=== PATIENT | male | born 1950 | race Caucasian/White ===

== ENCOUNTER 2017-05-29 15:35 | Observation (INO) | payer MEDICARE, OTHER ==
[2017-05-29] VITALS (7 sets, daily range): BP systolic 125–187; BP diastolic 63–113; PULSE 50–77; RESP 16–19; TEMP 97.4–98.4; O2SAT 93–99
[~2017-05-29] VITALS: Ht 180.3 cm; Wt 105.5 kg
[~2017-05-29 15:35] MED LIST: BENI20TA26 PO
[2017-05-29] MEDS ORDERED: DILT120T PO (16:15)
[2017-05-29] MEDS ORDERED: NITROGLYCERIN 2% OINT 1 GM PACKET TOP ONE (16:30)
[2017-05-29] MEDS ORDERED: ASPIRIN 81 MG CHEW TAB PO ONE (16:30)
[2017-05-29] MEDS ORDERED: SODIUM CHLORIDE 0.9% FLUSH 10 ML FLUSH IVF PRN (16:30)
[2017-05-29 17:04] LABS: AUTOMATED NEUTROPHIL # 3.8 TH/MM3 (1.8-7.7); BASOPHIL % 0.4 % (0.0-2.0); EOSINOPHIL # 0.2 TH/MM3 (0-0.4); EOSINOPHIL % 2.2 % (0.0-4.0); HEMATOCRIT 48.8 % (39.0-51.0); HEMO FLAGS DIFF FINAL; LYMPH % 34.8 % (9.0-44.0); LYMPHOCYTE # 2.5 TH/MM3 (1.0-4.8); MEAN CELL VOLUME 91.9 FL (80.0-100.0); MEAN CORPUSCULAR HEMOGLOBIN 32.2 PG (27.0-34.0); MEAN CORPUSCULAR HGB CONC 35.1 % (32.0-36.0); MONO % 8.9 % (0.0-8.0); NEUT % 53.7 % (16.0-70.0); PLATELET COUNT 245 TH/MM3 (150-450); RED BLOOD COUNT 5.31 MIL/MM3 (4.50-5.90); RED CELL DISTRIBUTION WIDTH 13.8 % (11.6-17.2); WHITE BLOOD COUNT 7.1 TH/MM3 (4.0-11.0)
[2017-05-29 17:16] LABS: APTT (PATIENT) 30.4 SEC (24.3-30.1)
[2017-05-29 17:38] LABS: ALKALINE PHOSPHATASE 68 U/L (45-117); CREATINE KINASE 352 U/L (39-308); TOTAL BILIRUBIN ADULT 0.3 MG/DL (0.2-1.0)
--- NOTE | 2017-05-29 17:41 | RADRPT ---
EXAM DATE/TIME: 05/29/2017 17:12 [facility] COMPARISON: No previous studies available for comparison. INDICATIONS : Left upper quadrant chest pain. MEDICAL HISTORY : Hypertension. SURGICAL HISTORY : None. ENCOUNTER: Initial ACUITY: 1 day PAIN SCORE: 3/10 LOCATION: Bilateral chest FINDINGS: A single view of the chest demonstrates the lungs to be symmetrically aerated without evidence of mas s, infiltrate or effusion. The cardiomediastinal contours are unremarkable. Osseous structures are intact. CONCLUSION: 1. No acute cardiopulmonary findings. Robert Hill MD on May 29, 2017 at 17:39 Board Certified Radiologist. This report was verified electronically.
--- NOTE | 2017-05-29 17:47 | PD ---
HPI Chief Complaint: Chest Pain Time Seen by Provider: 17:11 Travel History International Travel<30 days: No Contact w/Intl Traveler<30days: No Traveled to known affect area: No History of Present Illness HPI 67-year-old male presents emergency department for evaluation of chest pain intermittent left-sided chest without radiation for the past month or so. Patient had a referral to Dr. Raza whom he went to see today. According the patient Dr. Raza wanted to do a stress test but now a the patient was still having chest pain he recommended he come to the emergency department so the patient did. He states he is having only mild irritation left side of his chest. Now no radiation. Does have a history of high blood pressure. States he had a stress test some years ago as well as a cardiac catheterization and did not require any stents. He cannot determine any alleviating or exacerbating factors. He states it feels almost sore like he's been working his muscles 2 months. He states is also been under a lot of stress. Nonsmoker , no family history of heart disease. States symptoms are intermittent, mild, in the middle of his chest, associated signs symptoms as above. PFSH Past Medical History Heart Rhythm Problems: Yes Cancer: Yes (SQUAMOUS CELL CA EAR) Cardiovascular Problems: Yes (MVP) Diabetes: No Glaucoma: No Hepatitis: No Hiatal Hernia: No Hypertension: Yes Thyroid Disease: No Tetanus Vaccination: > 5 Years Influenza Vaccination: No Past Surgical History Abdominal Surgery: Yes (REPAIR INGUINAL HERNIA) Oral Surgery: Yes (T&A CHILDHOOD) Pacemaker: No Tonsillectomy: Yes Other Surgery: Yes (EXCISION SQUAMOUS CELL CA EAR) Social History Alcohol Use: No Tobacco Use: No Allergies-Medications (Allergen,Severity, Reaction): Coded Allergies: No Known Allergies (Verified Adverse Reaction, Unknown, 05/29/17) Reported Meds & Prescriptions Reported Meds & Active Scripts Active Reported Diltiazem (Diltiazem HCl) 120 Mg Tab 120 Mg PO DAILY Review of Systems Except as stated in HPI: all other systems reviewed are Neg Physical Exam Narrative GENERAL: [Well-developed well-nourished no obvious distress SKIN: Focused skin assessment warm/dry. HEAD: Atraumatic. Normocephalic. EYES: Pupils equal and round. No scleral icterus. No injection or drainage. ENT: No nasal bleeding or discharge. Mucous membranes pink and moist. NECK: Trachea midline. No JVD. CARDIOVASCULAR: Regular rate and rhythm. No murmur appreciated. 2+ bilateral equal pulses in all 4 extremities. RESPIRATORY: No accessory muscle use. Clear to auscultation. Breath sounds equal bilaterally. GASTROINTESTINAL: Abdomen soft, non-tender, nondistended. Hepatic and splenic margins not palpable. MUSCULOSKELETAL: No obvious deformities. No clubbing. No cyanosis. No edema. NEUROLOGICAL: Awake and alert. No obvious cranial nerve deficits. Motor grossly within normal limits. Normal speech. PSYCHIATRIC: Appropriate mood and affect; insight and judgment normal. Data Data Last Documented VS Vital Signs Date Time Temp Pulse Resp B/P (MAP) Pulse Ox O2 Delivery O2 Flow Rate FiO2 05/29/17 17:58 96 Room Air 05/29/17 17:58 53 19 160/77 (104) 05/29/17 15:36 98.4 Orders Orders Electrocardiogram (05/29/17 ) Electrocardiogram (05/29/17 16:19) Ckmb (Isoenzyme) Profile (05/29/17 16:19) Complete Blood Count With Diff (05/29/17 16:19) Comprehensive Metabolic Panel (05/29/17 16:19) Magnesium (Mg) (05/29/17 16:19) Prothrombin Time / Inr (Pt) (05/29/17 16:19) Act Partial Throm Time (Ptt) (05/29/17 16:19) Troponin I (05/29/17 16:19) Chest, Single Ap (05/29/17 16:19) Ecg Monitoring (05/29/17 16:19) Bilateral Bp Monitoring (05/29/17 16:19) Iv Access Insert/Monitor (05/29/17 16:19) Oximetry (05/29/17 16:19) Oxygen Administration (05/29/17 16:19) Aspirin Chew (Aspirin Chew) (05/29/17 16:30) Nitroglycerin 2% Oint (Nitroglycerin 2% (05/29/17 16:30) Sodium Chloride 0.9% Flush (Ns Flush) (05/29/17 16:30) CKMB (05/29/17 16:33) CKMB% (05/29/17 16:33) Admit Order (Ed Use Only) (05/29/17 ) Activity Bed Rest With Brp (05/29/17 18:04) Vital Signs (Adult) Q4H (05/29/17 18:04) Cardiac Rhythm .As Directed (05/29/17 18:04) Notify Dr: Other .PRN (05/29/17 18:04) Notify DrAbdelrahman Parameters (05/29/17 18:04) Resp Oxygen Nasal Cannula (05/29/17 ) Diet Heart Healthy (05/29/17 Dinner) Ckmb (Isoenzyme) Profile (05/29/17 19:00) Ckmb (Isoenzyme) Profile (05/29/17 22:00) Troponin I (05/29/17 19:00) Troponin I (05/29/17 22:00) Electrocardiogram (05/29/17 19:00) Electrocardiogram (05/29/17 22:00) ^ Obtain (05/29/17 18:04) Sodium Chloride 0.9% Flush (Ns Flush) (05/29/17 18:15) Sodium Chloride 0.9% Flush (Ns Flush) (05/29/17 21:00) Labs Laboratory Tests Test 05/29/17 16:33 White Blood Count 7.1 TH/MM3 Red Blood Count 5.31 MIL/MM3 Hemoglobin 17.1 GM/DL Hematocrit 48.8 % Mean Corpuscular Volume 91.9 FL Mean Corpuscular Hemoglobin 32.2 PG Mean Corpuscular Hemoglobin Concent 35.1 % Red Cell Distribution Width 13.8 % Platelet Count 245 TH/MM3 Mean Platelet Volume 8.8 FL Neutrophils (%) (Auto) 53.7 % Lymphocytes (%) (Auto) 34.8 % Monocytes (%) (Auto) 8.9 % Eosinophils (%) (Auto) 2.2 % Basophils (%) (Auto) 0.4 % Neutrophils # (Auto) 3.8 TH/MM3 Lymphocytes # (Auto) 2.5 TH/MM3 Monocytes # (Auto) 0.6 TH/MM3 Eosinophils # (Auto) 0.2 TH/MM3 Basophils # (Auto) 0.0 TH/MM3 CBC Comment DIFF FINAL Differential Comment Prothrombin Time 11.0 SEC Prothromb Time International Ratio 1.0 RATIO Activated Partial Thromboplast Time 30.4 SEC Blood Urea Nitrogen 14 MG/DL Creatinine 1.06 MG/DL Random Glucose 91 MG/DL Total Protein 8.3 GM/DL Albumin 4.5 GM/DL Calcium Level 8.7 MG/DL Magnesium Level 2.3 MG/DL Alkaline Phosphatase 68 U/L Aspartate Amino Transf (AST/SGOT) 29 U/L Alanine Aminotransferase (ALT/SGPT) 42 U/L Total Bilirubin 0.3 MG/DL Sodium Level 141 MEQ/L Potassium Level 4.0 MEQ/L Chloride Level 106 MEQ/L Carbon Dioxide Level 27.7 MEQ/L Anion Gap 7 MEQ/L Estimat Glomerular Filtration Rate 70 ML/MIN Total Creatine Kinase 352 U/L Creatine Kinase MB 6.6 NG/ML Creatine Kinase MB % 1.9 % Troponin I LESS THAN 0.02 NG/ML MDM Medical Decision Making Medical Screen Exam Complete: Yes Emergency Medical Condition: Yes Differential Diagnosis ACS, UT, chest wall pain from a skilled skeletal pain, PE is highly unlikely. Narrative Course patient roomed emergency department, initial troponin and EKG are reassuring except for a left axis deviation. No ST segment changes. Chest x-ray negative. Discussed with patient that I think given his age and his history of high blood pressure and symptomology and recommended that he stay overnight for evaluation of chest pain center consider further workup. He is agreeable to this time. Nitroglycerin applied. Chest pain is alleviating. Diagnosis Primary Impression: Chest pain Admitting Information Admitting Physician Requests: Observation Condition: Stable Chicho Torres MD May 29, 2017 17:47
[2017-05-29 17:51] LABS: CKMB 6.6 NG/ML (0.5-3.6)
[2017-05-29 17:52] LABS: ALT (GPT) 42 U/L (12-78); ANION GAP 7 MEQ/L (5-15); AST (GOT) 29 U/L (15-37); BICARBONATE 27.7 MEQ/L (21.0-32.0); BLOOD UREA NITROGEN 14 MG/DL (7-18); CHLORIDE 106 MEQ/L (98-107); GLOMERULAR FILTRATION RATE 70 ML/MIN (>89); MAGNESIUM 2.3 MG/DL (1.5-2.5); SODIUM (NA) 141 MEQ/L (136-145)
[2017-05-29] MEDS ORDERED: SODIUM CHLORIDE 0.9% FLUSH 10 ML FLUSH IV FLUSH PRN (18:15)
[2017-05-29 21:24] LABS: CREATINE KINASE 310 U/L (39-308)
[2017-05-29 21:36] LABS: CKMB 4.4 NG/ML (0.5-3.6)
[2017-05-29] MEDS: SODIUM CHLORIDE 0.9% FLUSH 10 ML FLUSH IV FLUSH SCH (23:06)
[2017-05-29 23:36] LABS: CREATINE KINASE 273 U/L (39-308)
[2017-05-29 23:49] LABS: CKMB 4.6 NG/ML (0.5-3.6)
[2017-05-30 00:26] VITALS: PULSE 54
[2017-05-30 04:03] VITALS: PULSE 51
[2017-05-30 04:54] VITALS: BP 136/75; PULSE 55; RESP 18; TEMP 98.1; O2SAT 93
[2017-05-30 07:59] VITALS: O2SAT 95
[2017-05-30] MEDS ORDERED: NITROGLYCERIN 0.4 MG SL 25 TABS/BTL SL PRN (08:00)
[2017-05-30] MEDS ORDERED: ACETAMINOPHEN 500 MG CPLT PO PRN (08:00)
[2017-05-30] MEDS ORDERED: ONDANSETRON HCL 4 MG/2 ML VIAL IV PUSH PRN (08:00)
[2017-05-30 08:02] VITALS: BP 147/80; PULSE 60; RESP 18; TEMP 97.7; O2SAT 99
--- NOTE | 2017-05-30 08:39 | HHI.HP ---
HPI Primary Care Physician Jeremiah Dolan DO Chief Complaint Chest pressure History of Present Illness 67-year-old male with history of hypertension presents to emergency room for further evaluation of chest pressure. Onset occurred intermittently for past few months. Notify his PCP who recommended referral to shake table operator. First appointment with shake table operator was yesterday. Seen Dr. Bry Raza. During his appointment patient experienced chest pressure. Dr. Raza recommended going to ER for further evaluation. Location left anterior chest. Characterized as a "discomfort may be a slight pressure, not sharp." No radiation of pain. Duration varies from a few minutes to 15 minutes. Reporting one episode lasted "all night." Yesterday experiences 3-4 episodes. Discomfort begins gradually and gradually resolves. No known precipitating or relieving factors. Nonexertional. Denies any current chest discomfort. Review of Systems General: No fatigue,weakness, fever, chills, or recent illness. Has been in his general state health. HEENT: No BLACKMON, no nasal congestion or drainage CV: As stated above No current CP or pressure. RESP: No SOB, cough, wheeze, or recent URI. GI: No nausea, vomiting, or bowel changes. No change in appetite, no unintentional weight gain or weight loss. : No dysuria EXT: No lower leg edema, no paraesthesias MS: No discomfort, change in ROM, injury, or trauma. NEURO: No difficulty with balance, LOC, motor/sensory deficits PSYCH: No anxiety, depression, or situational stress. SKIN: No rashes, no concerning lesions Past Family Social History Allergies: Coded Allergies: No Known Allergies (Verified Allergy, Unknown, 05/30/17) Past Medical History Hypertension, hyperlipidemia Reported Medications Reported Meds & Active Scripts Active Reported Diltiazem (Diltiazem HCl) 120 Mg Tab 120 Mg PO DAILY Pravastatin dose unknown daily (endorses he does not take on a regular basis) Active Ordered Medications Current Medications Medications (Trade) Dose Ordered Sig/Liliana Route Start Time Stop Time Status Last Admin (NS Flush) 2 ml UNSCH PRN IVF 05/29/17 16:30 (NS Flush) 2 ml UNSCH PRN IV FLUSH 05/29/17 18:15 (NS Flush) 2 ml BID IV FLUSH 05/29/17 21:00 05/29/17 23:06 (Tylenol) 500 mg Q4H PRN PO 05/30/17 08:00 (Zofran Inj) 4 mg Q6H PRN IV PUSH 05/30/17 08:00 (Nitrostat Sl) 0.4 mg Q5M PRN SL 05/30/17 08:00 (Aspirin) 325 mg DAILY PO 05/30/17 09:00 Family History Noncontributory for early onset cardiovascular disease. Social History Known hypertension and hyperlipidemia. No known diabetes. Endorses not taking statin on a regular basis. Lifelong nonsmoker. Denies any alcohol or illegal drug use. Endorses he "stays busy." Denies regular exercise regimen. Past cardiac testing No recent stress testing. Recently established with Dr. Bry Raza. 2007 Cardiac catheterization ([place], [place])-no intervention or stent required. Catheterization completed due to routine EKG was abnormal followed by an abnormal stress test. Physical Exam Vital Signs Vital Signs Date Time Temp Pulse Resp B/P (MAP) Pulse Ox O2 Delivery O2 Flow Rate FiO2 05/30/17 08:02 97.7 60 18 147/80 (102) 99 05/30/17 07:59 95 21 05/30/17 04:54 98.1 55 18 136/75 (95) 93 05/30/17 04:03 51 05/30/17 00:26 54 05/29/17 23:43 97.4 53 18 125/63 (83) 94 05/29/17 20:58 21 05/29/17 19:46 97.4 50 18 125/69 (87) 93 05/29/17 19:26 148/78 (101) 05/29/17 18:51 145/74 (97) 05/29/17 17:58 96 Room Air 05/29/17 17:58 53 19 160/77 (104) 96 Room Air 05/29/17 17:31 59 18 164/83 (110) 96 Room Air 151/82 (105) 05/29/17 15:36 98.4 61 16 187/113 (137) 96 Room Air Physical Exam GENERAL: Alert WN, WD, NAD, pleasant, male HEAD: NC, AT EYES: Sclera clear, conjunctiva without injection, pupils equal and round ENT: Mucous membranes pink and moist NECK: Supple, no masses, trachea midline CV: RRR, without murmur, rub, gallop, no JVD, S1-S2 no S3-S4. No carotid or femoral bruits. RESP: Clear lungs throughout bilateral, no crackles, wheeze, rhonchi, symmetrical chest rise, nonlabored, able to speak in full sentences ABD: Soft, NT, ND, no masses, positive bowel tones EXT: Pulses +24, no dependent edema MS: Normal tone 4 extremities, nontender, no obvious deformities, full range of motion NEURO: CN II through CN XII grossly intact, motor strength 5/5, gait WNL PSYCH: A+O 3, pleasant affect, appropriate speech, mood, insight and judgment SKIN: Normal turgor, normal texture, no lesions, no rashes, brisk cap refill, even hair distribution Laboratory Laboratory Tests Test 05/29/17 16:33 05/29/17 20:20 05/29/17 23:08 White Blood Count 7.1 Red Blood Count 5.31 Hemoglobin 17.1 Hematocrit 48.8 Mean Corpuscular Volume 91.9 Mean Corpuscular Hemoglobin 32.2 Mean Corpuscular Hemoglobin Concent 35.1 Red Cell Distribution Width 13.8 Platelet Count 245 Mean Platelet Volume 8.8 Neutrophils (%) (Auto) 53.7 Lymphocytes (%) (Auto) 34.8 Monocytes (%) (Auto) 8.9 Eosinophils (%) (Auto) 2.2 Basophils (%) (Auto) 0.4 Neutrophils # (Auto) 3.8 Lymphocytes # (Auto) 2.5 Monocytes # (Auto) 0.6 Eosinophils # (Auto) 0.2 Basophils # (Auto) 0.0 CBC Comment DIFF FINAL Differential Comment Prothrombin Time 11.0 Prothromb Time International Ratio 1.0 Activated Partial Thromboplast Time 30.4 Blood Urea Nitrogen 14 Creatinine 1.06 Random Glucose 91 Total Protein 8.3 Albumin 4.5 Calcium Level 8.7 Magnesium Level 2.3 Alkaline Phosphatase 68 Aspartate Amino Transf (AST/SGOT) 29 Alanine Aminotransferase (ALT/SGPT) 42 Total Bilirubin 0.3 Sodium Level 141 Potassium Level 4.0 Chloride Level 106 Carbon Dioxide Level 27.7 Anion Gap 7 Estimat Glomerular Filtration Rate 70 Total Creatine Kinase 352 310 273 Creatine Kinase MB 6.6 4.4 4.6 Creatine Kinase MB % 1.9 1.4 Troponin I LESS THAN 0.02 LESS THAN 0.02 LESS THAN 0.02 Result Diagram: 05/29/17 1633 05/29/17 1633 Imaging Last Impressions Myocardial Perfusion Scan Nuc [facility] 05/30/17 0000 Signed Impressions: Service Date/Time: Tuesday, May 30, 2017 10:13 - CONCLUSION: Unremarkable myocardial perfusion examination. RISK CATEGORY: Low Primitivo Medina MD Chest X-Ray 05/29/17 1619 Signed Impressions: Service Date/Time: May 17:12 - CONCLUSION: 1. No acute cardiopulmonary findings. Robert Hill MD Course EKG Normal sinus rhythm, nonspecific T-wave changes Caprini VTE Risk Assessment Caprini VTE Risk Assessment: No/Low Risk (score <= 1) Caprini Risk Assessment Model Point Value = 1 Point Value = 2 Point Value = 3 Point Value = 5 Age 41-60 Minor surgery BMI > 25 kg/m2 Swollen legs Varicose veins or History of unexplained or recurrent spontaneous Oral contraceptives or hormone replacement Sepsis (< 1 month) Serious lung disease, including pneumonia (< 1 month) Abnormal pulmonary function Acute myocardial infarction Congestive heart failure (< 1 month) History of inflammatory bowel disease Medical patient at bed rest Age 61-74 Arthroscopic surgery Major open surgery (> 45 min) Laparoscopic surgery (> 45 min) Malignancy Confined to bed (> 72 hours) Immobilizing plaster cast Central venous access Age >= 75 History of VTE Family history of VTE Factor V Leiden Prothrombin [id number] Lupus anticoagulant Anticardiolipin antibodies Elevated serum homocysteine Heparin-induced thrombocytopenia Other congenital or acquired thrombophilia Stroke (< 1 month) Elective arthroplasty Hip, pelvis, or leg fracture Acute spinal cord injury (< 1 month) Prophylaxis Regimen Total Risk Factor Score Risk Level Prophylaxis Regimen 0-1 Low Early ambulation 2 Moderate Order ONE of the following: *Sequential Compression Device (SCD) *Heparin 5000 units SQ BID 3-4 Higher Order ONE of the following medications: *Heparin 5000 units SQ TID *Enoxaparin/Lovenox 40 mg SQ daily (WT < 150 kg, CrCl > 30 mL/min) *Enoxaparin/Lovenox 30 mg SQ daily (WT < 150 kg, CrCl > 10-29 mL/min) *Enoxaparin/Lovenox 30 mg SQ BID (WT < 150 kg, CrCl > 30 mL/min) AND/OR *Sequential Compression Device (SCD) 5 or more Highest Order ONE of the following medications: *Heparin 5000 units SQ TID (Preferred with Epidurals) *Enoxaparin/Lovenox 40 mg SQ daily (WT < 150 kg, CrCl > 30 mL/min) *Enoxaparin/Lovenox 30 mg SQ daily (WT < 150 kg, CrCl > 10-29 mL/min) *Enoxaparin/Lovenox 30 mg SQ BID (WT < 150 kg, CrCl > 30 mL/min) AND *Sequential Compression Device (SCD) Assessment and Plan Assessment and Plan #1 Atypical chest pain-admitted to chest pain center. Ruled out with 3 sets of EKGs, cardiac enzymes, and monitored overnight. Will be seen and evaluated by Dr. Salty Luz. Will also call patient's shake table operator, Dr. Bry Raza, to discuss plan of care. Discussed with patient in length most likely will complete a nuclear exercise stress test later this morning. This will be determine after evaluation by Dr. Salty Luz and speaking with his shake table operator Dr. Raza. If stress test unremarkable, plans to discharge later this afternoon. Patient agreeable plan of care. #2 Hypertension-continue diltiazem, follow with PCP upon discharge #3 Hyperlipidemia-encouraged taking pravastatin as previously instructed, education on cardiac benefits of statin therapy in addition to lower cholesterol. Patient verbalized he will start medication as previously ordered. [address] Bry Raza, agrees to proceed with cardiac stress testing as patient has been ruled out with 3 sets of cardiac enzymes and EKGs. Shirley Ramirez May 30, 2017 08:39
[2017-05-30] MEDS ORDERED: ASPIRIN 325 MG TAB PO SCH (09:00)
--- NOTE | 2017-05-30 12:26 | RADRPT ---
EXAM DATE/TIME: 05/30/2017 10:13 [facility] COMPARISON: No previous studies available for comparison. INDICATIONS : Left sided chest pain. Angina DOSE: 35 mCi Tc99m Myoview at stress 11 mCi Tc99m Myoview at rest REST HEART RATE: 66 BPM TARGET HEART RATE: 131 BPM MAX HEART RATE: 135 BPM REST BLOOD PRESSURE: 130/82 mmHg MAX BLOOD PRESSURE: 198/82 mmHg EJECTION FRACTION: 59% MEDICAL HISTORY : Carcinoma, squamous cell. Hypertension. SURGICAL HISTORY : Inguinal hernia repair. ENCOUNTER: Initial ACUITY: 1 month PAIN SCALE: 2/10 LOCATION: Left chest TECHNIQUE: The patient underwent upright treadmill exercise in the chest pain center. Continuous ECG tracing wa s monitored during stress. Gated SPECT imaging was performed after stress, and conventional SPECT im aging was performed at rest. The examination was performed on a SPECT/CT scanner, both attenuation-c orrected and non-corrected datasets were reviewed. FINDINGS: DISTRIBUTION: The maximum perfused segment at stress is in the anterior septal wall. PERFUSION STUDY: The pattern of perfusion at stress is within normal limits. GATED STUDY: There is intact wall motion and thickening without hypokinetic or dyskinetic segments. CONCLUSION: Unremarkable myocardial perfusion examination. RISK CATEGORY: Low Primitivo Medina MD on May 30, 2017 at 12:24 Board Certified Radiologist. This report was verified electronically.
[2017-05-30] MEDS: SODIUM CHLORIDE 0.9% FLUSH 10 ML FLUSH IV FLUSH SCH (13:02)
--- NOTE | 2017-05-30 13:44 | HHI.DCPOC ---
Discharge Care Plan Diagnosis: (1) Atypical chest pain Goals to Promote Your Health * To prevent worsening of your condition and complications * To maintain your health at the optimal level Directions to Meet Your Goals Take your medications as prescribed Follow your dietary instruction Follow activity as directed Keep your appointments as scheduled Take your immunizations and boosters as scheduled If your symptoms worsen call your PCP, if no PCP go to Urgent Care Center or Emergency Room Smoking is Dangerous to Your Health. Avoid second hand smoke Call the 24-hour hour crisis hotline for domestic abuse at Shirley Ramirez May 30, 2017 13:44
--- NOTE | 2017-05-30 16:18 | EKG ---
Date Performed: 05/29/2017 Time Performed: 22:36:41 PTAGE: 67 years EKG: SINUS BRADYCARDIA WITH FIRST DEGREE AV BLOCK MARKED LEFT AXIS DEVIATION ABNORMAL ECG PREVIOUS TRACING : 05/29/2017 19.53 Since previous tracing, no significant change noted DOCTOR: Salty Luz Interpretating Date/Time 05/30/2017 16:17:22
--- NOTE | 2017-05-30 16:22 | EKG ---
Date Performed: 05/29/2017 Time Performed: 19:53:50 PTAGE: 67 years EKG: SINUS BRADYCARDIA BORDERLINE LEFT AXIS DEVIATION NONSPECIFIC T-WAVE ABNORMALITY BORDERLINE ECG PREVIOUS TRACING : 05/29/2017 16.27 Compared to previous tracing,T wave changes are new. DOCTOR: Salty Luz Interpretating Date/Time 05/30/2017 16:21:17
--- NOTE | 2017-05-30 16:23 | EKG ---
Date Performed: 05/29/2017 Time Performed: 16:27:11 PTAGE: 67 years EKG: SINUS BRADYCARDIA MARKED LEFT AXIS DEVIATION ABNORMAL ECG PREVIOUS TRACING : 10/05/2009 12.32 Since previous tracing, no significant change noted DOCTOR: Salty Luz Interpretating Date/Time 05/30/2017 16:22:24
--- NOTE | 2017-05-30 16:29 | TR ---
Date Performed: 05/30/2017 Time Performed: 11:10:25 DOCTOR: Salty Luz DRUG LIST: CLINICAL HISTORY: CHEST PAIN REASON FOR TEST: Chest pain REASON FOR ENDING: OBSERVATION: CONCLUSION: Drew protocol completed. Stopped sec to exceeding target heart rate and leg fatigue . Maximum CH=712 Target HR Achieved=88.0% Maximum CN=328/88 Total Exercise Time=8:33. No reprod chest pain. No ectopy. No st t segment changes to sugg ischemia. Hypertensive bp response. Greeat exercise tolerane. Recovery quick and unremarkable. Nulcear images pending. COMMENTS: Conclusion: Normal treadmill exercise. No evidence of ischemia. Radionuclide was inje cted one minute prior to ending test. Nuclear imaging and interpretation are pending.
== END 2017-05-30 14:32 | disposition home or self-care (01) ==
LOC: NEPC 15:35 → NEDA 18:06 → NEPHCDU 19:07
DX: R07.89 Other chest pain (principal); I10 Essential (primary) hypertension; R94.31 Abnormal electrocardiogram [ECG] [EKG]; Z85.828 Personal history of other malignant neoplasm of skin
CPT/HCPCS: 71010; 78452; 80053; 82550; 82552; 83735; 84484; 85025; 85610; 85730; 93005; 93017; 99285; A9502; G0378